=== PATIENT | male | born 1960 | race African-American/Black ===

== ENCOUNTER 2019-03-31 12:36 | Outpatient (CLI) | payer BC ==
--- NOTE | 2019-03-31 13:31 | RAD ---
XR Cervical Spine 4 View Min History: Torticollis Comparison: None. Findings: The head is tilted to the right. No acute fracture or malalignment. Anterior left hemineck surgical clips. Mild multilevel uncinate process hypertrophy. No significant osseous neural foraminal narrowing. Mild degenerative disc space height loss at C5/C6. Impression: Rightward tilting of the head, corresponding to the history of torticollis. No acute frac ture or malalignment. Mild spondylosis.
== END 2019-03-31 12:37 | disposition home or self-care (01) ==
LOC: BICRAD 12:36
PROVIDERS: ATTEND Chiropractor
DX: M43.6 Torticollis (principal); M47.22 Other spondylosis with radiculopathy, cervical region
CPT/HCPCS: 72050

== ENCOUNTER 2023-06-03 11:53 | Outpatient (CLI) | payer BC | END 2023-06-03 11:54 | disposition home or self-care (01) | LOC: BICRAD 11:53 | PROVIDERS: ATTEND Nurse Practitioner Family | DX: M54.50 Low back pain, unspecified (principal); M47.816 Spondylosis without myelopathy or radiculopathy, lumbar region | CPT/HCPCS: 72110 ==